=== PATIENT | female | born 1990 | race African-American/Black ===

== ENCOUNTER 2021-03-22 11:32 | Emergency (ER) | payer MEDICAID ==
[~2021-03-22] VITALS: Ht 182.9 cm; Wt 91.0 kg
[2021-03-22 11:38] VITALS: BP 116/82
== END 2021-03-22 18:03 | disposition left against medical advice (07) ==
LOC: ER 11:32
DX: R06.02 Shortness of breath (principal); Z53.21 Procedure and treatment not carried out due to patient leaving prior to being seen by health care provider
CPT/HCPCS: 93005